=== PATIENT | female | born 1965 | race Caucasian/White ===

== ENCOUNTER 2016-09-07 21:53 | Emergency (ER) | payer OTHER ==
[~2016-09-07] VITALS: Ht 165.1 cm; Wt 65.9 kg
[2016-09-07 22:06] VITALS: BP 116/71; PULSE 91; O2SAT 100
--- NOTE | 2016-09-07 22:38 | ED.REPORT ---
HPI-General Illness Date of Service September 07, 2016 ED Provider: Dr. Americo Hodge D.O. A 51 year old female currently being worked-up for a bleeding uterine fibroid presents to the ED with vaginal bleeding onset last night. Associated symptoms include generalized weakness, generalized myalgias, nausea, and dizziness. The patient denies vomiting, diarrhea, or other symptoms. Earlier this week, she received two units of blood and a Depo shot at [facility], which resolved her bleeding. However, she is now concerned that her blood counts may be low again. The patient has an appointment with a body and fender worker in two days. Nursing Notes Stated Complaint: WEAKNESS, VAG BLEED Chief Complaint: General Complaint Nursing Notes Reviewed: Yes Allergies: Coded Allergies: tramadol (Verified Allergy, Severe, 09/07/16) General Time Seen by MD: 22:38 Chief Complaint Other (Vaginal bleeding) Hx Obtained From: Patient Arrived By: Walk-in Onset Occurred: Yesterday (Last night) Symptom Duration: Since onset Location: : Abdomen: Back: Chest Quality: Aching, Painful Severity: Current: Moderate Severity: Maximum: Moderate Pertinent Negative: Relieved by nothing Recent Healthcare: Recent doctor visit Similar Sx Previous: Yes Past Medical History Past Medical History Currently being worked up for a bleeding uterine fibroid as of 09/08/16 Past Surgical History None reported Family History Uterine cancer Smoking History Current Every Day Smoker Social History Alcohol Use: Denies alcohol use Other Social History: Good social support Ambulatory Status Independent Review of Systems Full Review of Systems Constitutional: Reports: Weakness - generalized, Denies: Fever Respiratory: Denies: Non-productive cough, Shortness of breath GI: Reports: Nausea, Denies: Diarrhea, Vomiting Female: Reports: Vaginal bleeding - abnl Musculoskeletal: Reports: Myalgia (Generalized myalgias) Neurologic: Reports: Dizziness Complete sys rev & neg: except as marked. Physical Exam Vital Signs Vital Signs Date Time Temp Pulse Resp B/P Pulse Ox O2 Delivery O2 Flow Rate FiO2 09/08/16 01:00 36.7 71 18 99/51 96 Room Air 09/08/16 00:51 36.7 71 18 99/51 96 Room Air 09/07/16 22:06 35.6 91 116/71 100 Room Air Initial VS: Reviewed Neck: Supple, Full range of motion Respiratory: Breath sounds normal, Clear to auscultation, No respiratory distress Cardiovascular: Regular rate & rhythm, Heart sounds normal Skin: Warm, Dry, No cyanosis Neurologic: Alert, Oriented, Nonfocal General/Constitutional: Awake, Alert Behavior: Positive: Anxious Appearance / Presentation: Positive: Pale Head / Eyes: Atraumatic, Normocephalic Interpretation & Diagnostics Lab Results Interpretation Result Diagram: 09/08/16 0028 09/07/16 2230 Test 09/07/16 22:30 09/08/16 00:28 White Blood Count 5.5th/mm3 (3.8-10.1) Red Blood Count 4.15mil/mm3 (3.90-5.20) Mean Corpuscular Volume 68.2fL (81-100) Mean Corpuscular Hemoglobin 16.5pg (27.0-35.0) Mean Corpuscular Hemoglobin Concent 28.6% (32.0-37.0) Red Cell Distribution Width 26.5% (12.3-15.4) Platelet Count 296bil/L (150-400) Neutrophils (%) (Auto) 60.6% (40-74) Lymphocytes (%) (Auto) 20.2% (14-46) Monocytes (%) (Auto) 13.0% (4-12) Eosinophils (%) (Auto) 5.1% (0-5) Basophils (%) (Auto) 0.9% (0-3) Hematology Comments Sodium Level 138mEq/L (134-144) Potassium Level 3.8mEq/L (3.5-5.2) Chloride Level 100mEq/L (97-108) Carbon Dioxide Level 26mmol/L (18-29) Blood Urea Nitrogen 12mg/dL (6-24) Creatinine 0.68mg/dL (0.57-1.00) Estimat Glomerular Filtration Rate 130mL/min (>59) Glucose Level 105mg/dL (60-99) Calcium Level 9.1mg/dL (8.5-10.1) Total Bilirubin 0.2mg/dL (0.0-1.2) Aspartate Amino Transf (AST/SGOT) 17U/L (0-50) Alanine Aminotransferase (ALT/SGPT) 12U/L (0-32) Alkaline Phosphatase 68U/L (25-150) Troponin T 0.010ug/L (0.0-0.011) Total Protein 7.0g/dL (6.4-8.4) Albumin 3.9g/dL (3.4-5.0) Hold Chen Top Tube Received (Received) Hemoglobin 7.5g/dL (12.0-15.6) Hematocrit 26.4% (35.0-46.0) ECG Interpretation ECG Interpretation: Sinus rhythm rate 80 Time: 22:36 Interpreted by: ED physician Re-Eval/Medical Decision Med Decision/Clinical Course I consulted with her primary care physician's clinic. Recommendations are to hold off on transfusion now and they will follow up with her H&H later this week. She will most likely need another transfusion. Gynecology follow-up has been established for Thursday. At discharge she was awake and alert. Vital signs were stable. She had not had any further bleeding. H&H was stable. Close outpatient follow-up recommended. Time of Eval: 00:19 Patient Status: Condition improved Re-Evaluation/Progress Note: Discussed with patient lab results, diagnosis, and plan for discharge. Follow-up and return to the ER instructions given. Patient agrees with plan for care and all questions were addressed. Consultation : Consulted With: Primary care physician Call Returned at: 23:30 Warehouser: Agrees with eval, Agrees with plan Note: Consulted physician manager of international for Dr. Robins. He does not recommend transfusion tonight. Patient can call the office tomorrow morning for a follow-up appointment. Counseled Regarding: Diagnosis, Lab results, Need for follow-up, When/why to return to ED Discharge & Departure Primary Impression: Vaginal bleeding, abnormal Additional Impression: Anemia Anemia type: other cause Other causes of anemia: acute posthemorrhagic Qualified Code: D62 - Acute posthemorrhagic anemia Disposition: Home Discharge Condition All VS Reviewed: Yes Condition: Improved Patient Instructions: Acute Posthemorrhagic Anemia (DC), Dysfunctional Uterine Bleeding (ED) Additional Instructions: Repeat hemoglobin was 7.5. The repeat hematocrit was 26. You do not need to be transfused right now however you are very close. You will most likely need a transfusion this week unless the bleeding stops completely. I consulted with the physician on-call for your doctor. He would like you to call the office first thing Thursday. You will need a repeat blood count if you are having ongoing hemorrhage. Keep the follow-up with the air plant engineer/ body and fender worker on Thursday. If you have any further heavy bleeding or if you ever develop any feelings like you are going to pass out or lightheaded when standing quickly then come back right away for repeat blood count. I recommend you start taking a multivitamin with iron to help replace the red blood cell mass that you are losing to the bleeding. Having the uterine fibroids/ abnormality definitively managed is going to help all of this in the long run so follow-up on Thursday as instructed. Referrals: Prieto Robins MD (PCP) Scribe Attestation Portions of this note were transcribed by Ankita Guerrero. I, Dr. Hodge, personally performed the history, physical exam, and medical decision-making; I reviewed and confirmed the accuracy of the information in the transcribed note. Signed by: Svitlana Dover, 09/08/2016, 01:00 copies to: Prieto Robins MD, Todd P DO September 07, 2016 22:38 ANKITA GUERRERO September 07, 2016 23:05
[2016-09-07 22:59] LABS: BASOPHILS % (AUTO) 0.9 % (0-3); EOSINOPHILS % (AUTO) 5.1 % (0-5); Mean Corpuscular Hemoglobin 16.5 pg (27.0-35.0); Mean Corpuscular Volume 68.2 fL (81-100); NEUTROPHILS % (AUTO) 60.6 % (40-74); Platelet Count 296 bil/L (150-400)
[2016-09-07] MEDS ORDERED: 0.9% Sodium Chloride 1,000 ML IV ONE (23:50)
[2016-09-08 00:51] VITALS: BP 99/51; PULSE 71; RESP 18; O2SAT 96
[2016-09-08 01:00] VITALS: BP 99/51; PULSE 71; RESP 18; O2SAT 96
== END 2016-09-08 01:01 | disposition home or self-care (01) ==
LOC: SED 21:53
DX: N93.9 Abnormal uterine and vaginal bleeding, unspecified (principal); D62 Acute posthemorrhagic anemia; F17.200 Nicotine dependence, unspecified, uncomplicated; Z88.5 Allergy status to narcotic agent
CPT/HCPCS: 36415; 80053; 84484; 85014; 85018; 85025; 86850; 93005; 96360; 99284; J7030